=== PATIENT | female | born 1990 | race Caucasian/White ===

== ENCOUNTER 2016-10-09 14:14 | Inpatient (IN) | payer BC, MEDICAID ==
[2016-10-09] MEDS ORDERED: DEXTROSE 5%-LACTATED RINGERS 1,000 ML IV PRN (14:17)
[2016-10-09] MEDS ORDERED: OXYTOCIN/DEXTROSE 5%-WATER 30 UNITS/500 ML BAG IV ONE ×2 (14:17→15:32)
[2016-10-09] MEDS ORDERED: RINGER'S SOLUTION,LACTATED 1,000 ML IV ONE (14:17)
[2016-10-09] MEDS ORDERED: ONDANSETRON HCL/PF 2 MG/ML VIAL IV PRN (14:17)
[2016-10-09] MEDS ORDERED: LIDOCAINE HCL 50 ML VIAL PERI PRN (14:17)
[2016-10-09 14:46] LABS: Hematocrit 37.7 % (37.0-47.0); Mean Cell Volume 81.8 fl (78-100); Mean Corpuscular Hemoglobin 28.2 pg (27-31); Mean Corpuscular Hgb Conc 34.5 g/dl (32-36); Mean Platelet Volume 11.2 fl (6.0-9.5); Neutrophil # 9.1 K/mm3 (1.3-6.0); Neutrophil % 80.2 % (42-75.0); Platelet Count 109 K/mm3 (150-450); Red Blood Count 4.61 M/mm3 (4.2-5.4); White Blood Count 11.4 K/mm3 (4.0-10.5)
[2016-10-09] MEDS ORDERED: BENZOCAINE/MENTHOL 81 SPRAY CAN TP PRN (15:32)
[2016-10-09] MEDS ORDERED: oxyCODONE HCL/ACETAMINOPHEN 1 TAB TABLET PO PRN ×2 (15:32)
[2016-10-09] MEDS ORDERED: HYDROCORTISONE 30 APPL TUBE TP PRN (15:32)
[2016-10-09] MEDS ORDERED: BISACODYL 10 MG SUPP.RECT RC PRN (15:32)
[2016-10-09] MEDS ORDERED: IBUPROFEN 800 MG TABLET PO PRN (15:32)
[2016-10-09] MEDS ORDERED: GLYCERIN/WITCH HAZEL LEAF 40 APPL BOX TP PRN (15:32)
[2016-10-09] MEDS ORDERED: SENNOSIDES 8.6 MG TABLET PO PRN (15:32)
--- NOTE | 2016-10-09 15:35 | OR ---
Operative Report - Dictated Report Narrative: Spontaneous vaginal delivery of viable male at 1515 on 10/09/16 in [facility]URA position with Apgars of 9 and 9, weighing 4162 g. Loose nuchal cord 1. Cord clamping delayed approximately 1 minute Placenta delivered complete, intact, with three vessel cord Estimated blood loss: 100 mL Lacerations: None History for MU Definition: * The number of deliveries resulting in a live the patient experienced prior to current hospitalization * The previous delivery of live twins or any live multiple gestation is considered one live event. *If primagravida or nulliparous is documented select zero for the number of previous live births. Live Events: 1
[2016-10-09] MEDS: DOCUSATE SODIUM 100 MG CAPSULE PO SCH (21:06)
[2016-10-10] MEDS: PRENATAL VITS96/IRON FUM/FOLIC 1 TAB TABLET PO SCH (11:05)
[2016-10-10] MEDS: DOCUSATE SODIUM 100 MG CAPSULE PO SCH ×2 (11:05→20:55)
--- NOTE | 2016-10-10 14:37 | PN ---
Subjective - Date and Time Seen Date: 10/10/16 Time: 14:37 Objective - Vitals Vitals: Last Vital Signs Temp 36.8 C 10/10/16 12:22 Pulse 72 10/10/16 12:22 Resp 14 10/10/16 12:22 BP 125/68 10/10/16 12:22 Pulse Ox 99 10/10/16 12:22 Patient denies complaints. Lochia wnl Abdomen - soft, nontender Uterus - firm, at umbilicus - 1 No calf tenderness Impression: day #1 - s/p spontaneous vaginal delivery. Plan: Continue routine care - Abnormal Lab Findings Abnormal Lab Findings: Abnormal Lab Results 10/09/16 Range/Units 14:35 WBC 11.4 H (4.0-10.5) K/mm3 Plt Count 109 L (150-450) K/mm3 MPV 11.2 H (6.0-9.5) fl Immature Gran # (Auto) 0.05 H (0.000-0.0310) K/mm3 Neutrophils % 80.2 H (42-75.0) % Lymphocytes % 12.1 L (20-51) % Neutrophils # 9.1 H (1.3-6.0) K/mm3 Lymphocytes # 1.4 L (1.5-3.5) k/mm3
[2016-10-10] MEDS: FERROUS SULFATE 325 MG TABLET PO SCH (20:55)
[2016-10-11 08:15] VITALS: BP 101/64
[2016-10-11] MEDS: PRENATAL VITS96/IRON FUM/FOLIC 1 TAB TABLET PO SCH (09:43)
[2016-10-11] MEDS: DOCUSATE SODIUM 100 MG CAPSULE PO SCH (09:44)
[2016-10-11] MEDS: FERROUS SULFATE 325 MG TABLET PO SCH (09:44)
--- NOTE | 2016-10-11 11:33 | PN ---
Subjective - Date and Time Seen Date: 10/11/16 Time: 11:32 Objective - Vitals Vitals: Last Vital Signs Temp 36.8 C 10/11/16 07:00 Pulse 84 10/11/16 07:00 Resp 20 10/11/16 07:00 BP 101/64 10/11/16 07:00 Pulse Ox 98 10/11/16 07:00 Patient denies complaints. Lochia wnl Abdomen - soft, nontender Uterus - firm, at umbilicus - 2 No calf tenderness Impression: day #2 - s/p spontaneous vaginal delivery. Plan: Routine discharge instructions
== END 2016-10-11 14:45 | disposition home or self-care (01) | DRG 775 ==
LOC: OB 14:14 → MS 10-10 11:49
PROVIDERS: ADMIT Obstetrics & Gynecology; ATTEND Obstetrics & Gynecology
PROC: 10E0XZZ Delivery of Products of Conception, External Approach (ICD-10-PCS; principal; 2016-10-09)
PROC: 4A1HXCZ Monitoring of Products of Conception, Cardiac Rate, External Approach (ICD-10-PCS; 2016-10-09)
DX: O99.12 Other diseases of the blood and blood-forming organs and certain disorders involving the immune mechanism complicating childbirth (principal); O69.81X0 Labor and delivery complicated by cord around neck, without compression, not applicable or unspecified; D69.6 Thrombocytopenia, unspecified; Z3A.40 40 weeks gestation of pregnancy; Z37.0 Single live birth